=== PATIENT | male | born 1985 | race Caucasian/White ===

== ENCOUNTER → 2020-01-20 | Day surgery (SDC) | payer BC ==
[~2020-01-20] MED LIST: Propofol 200 MG/20 ML SDV IV ONE; fentaNYL 100 MCG/2 ML SDV IV ONE
[2020-01-20] MEDS: Lactated Ringers 1,000 ML IV SCH (10:07)
--- NOTE | 2020-01-23 08:31 | OR ---
DATE OF OPERATION: 01/20/2020 PREOPERATIVE DIAGNOSIS: EPIGASTRIC PAIN. POSTOPERATIVE DIAGNOSIS: DUODENAL ULCER. SURGEON: Bob Michael MD PROCEDURE: FULL-LENGTH EGD WITH BIOPSY X1, MELIZA, POLYP REMOVAL X1. ANESTHESIA: MAC. COMPLICATIONS: None. SPECIMEN: 1. Duodenal bulb biopsy x1. 2. Antral MELIZA. 3. Fundal polyp, adenomatous. FINDINGS: 1. Full-length EGD. 2. Focal area of duodenitis with erosion. 3. Adenomatous polyp, mid fundus. RECOMMENDATIONS: The patient will be placed on 6 weeks proton pump therapy to heal this ulcer. INDICATIONS: The patient was in for some epigastric pain. Workup thus far is negative. We elected to proceed with diagnostic EGD. DESCRIPTION OF PROCEDURE: The patient was prepped and draped, placed in the left lateral decubitus position. A lubricated Olympus gastroscope was inserted over a bit, advanced to cricopharyngeus area, and easily intubated into the esophagus. The esophageal lining was benign in its entire course. The Z-line was crisp and sharp at 40 cm. No hernia. No distal esophagitis, stricturing, ulceration, or Lopez's changes. The scope was advanced into the stomach, through the pylorus, and into the second portion of the duodenum. This was benign. The duodenal bulb had a larger area of erythema and inflammation with a central erosion. No active bleeding. A biopsy of the periphery was taken. The scope was brought back into the stomach and retroflexed. The upper fundus and cardia were unremarkable. In the mid fundus, there was a small adenomatous polyp removed in its entirety with a forceps. The rest of the fundus and antrum were completely benign. We did do a CLOtest. Air was then suctioned, scope removed without complication. JENNIFER/JONA /[id number]
== END ==
LOC: MERGE 08:53 → CC.SDS 08:53
PROVIDERS: ATTEND Family Medicine
DX: K31.7 Polyp of stomach and duodenum (principal); K29.80 Duodenitis without bleeding; K26.9 Duodenal ulcer, unspecified as acute or chronic, without hemorrhage or perforation; E66.9 Obesity, unspecified; Z90.49 Acquired absence of other specified parts of digestive tract; Z87.19 Personal history of other diseases of the digestive system; Z68.41 Body mass index [BMI] 40.0-44.9, adult
CPT/HCPCS: 43239; 87081; J2704; J3010; J7120